=== PATIENT | male | born 1930 | race Caucasian/White ===

== ENCOUNTER 2016-09-28 13:12 | Emergency (ER) | payer MEDICARE, OTHER ==
[~2016-09-28 13:12] MED LIST: AMOX-366 PO; DILT120C86 PO; ESOM40CA41 PO; FERR325C PO; LEVO75TA4 PO; RNT300T PO; SIMV10TA4 PO; TAMS0.4C98 PO; TOLT4CAP13 PO; WARF5TAB PO; WARF7.5T4 PO
[2016-09-28 13:20] VITALS: BP 146/83; PULSE 63; RESP 16; O2SAT 96
[2016-09-28 13:23] LABS: BASOPHILS % (AUTO) 0.4 % (0-3); EOSINOPHILS % (AUTO) 4.9 % (0-5); MONOCYTES % (AUTO) 9.2 % (4-12); Mean Corpuscular Volume 98.7 fL (81-100); NEUTROPHILS % (AUTO) 62.4 % (40-74); Platelet Count 323 bil/L (150-400)
[2016-09-28] MEDS ORDERED: RANI150C4 PO (13:38)
[2016-09-28] MEDS ORDERED: LEVO75CA2 PO (13:38)
[2016-09-28] MEDS ORDERED: ASPI-973 PO (13:38)
[2016-09-28] MEDS ORDERED: SIMV20TA4 PO (13:38)
--- NOTE | 2016-09-28 13:42 | DRSVH ---
PROCEDURE: X-RAY CHEST ONE VIEW, PORTABLE ([id number]) INDICATIONS: chest pressure/palpitations TECHNIQUE: One view of the chest was acquired. COMPARISON: [facility], CR, XR CHEST 1VW (PORTABLE), 01/21/2016, 20:31. FINDINGS: Surgical changes and devices: None. Lungs and pleura: No pleural effusions or pneumothorax. Lungs are clear. No clonus in The right diaphragm, which is mildly elevated, not significantly changed. Mediastinum: Mediastinal contours appear normal. Heart size is normal. There is aortic atheroscler osis. Bones and chest wall: No suspicious bony lesions. The bone mineralization appears decreased. Overl karolina soft tissues appear unremarkable. IMPRESSION: Stable chest. No acute cardiopulmonary process is evident. Dictated by: Torres Enrique M.D. on 09/28/2016 at 12:39 Approved by: Torres Enrique M.D. on 09/28/2016 at 12:40
[2016-09-28 13:43] LABS: TROPONIN T < 0.010 ug/L (0.0-0.011)
[2016-09-28 13:52] LABS: Magnesium 2.2 mg/dL (1.6-2.6)
--- NOTE | 2016-09-28 14:24 | ED.REPORT ---
HPI-Chest Pain 40 and Over Date of Service Sep 28, 2016 ED Provider: Brian Mcclellan MD Patient present in the ER today for chest pain on exertion. At this point he has no chest pain symptoms all have resolved since arrival. Earlier today he was at the gym working out on one of the machines when he noted chest pain dizziness and nausea without vomiting. She has had a history of chest pain over the last couple months progressive. All episodes seem to be related to exertion. Chest pain is alleviated with rest sometimes taking many minutes to resolve but pain was eventually does resolve. Patient is currently taking medication for high cholesterol as well as aspirin. Family reports that he has recent history of A. fib. Nursing Notes Stated Complaint: CHEST PAIN Chief Complaint: Chest Pain Allergies: Coded Allergies: No Known Allergies (Unverified Allergy, Unknown, 03/29/14) Uncoded Allergies: seasonal allergies (Allergy, Mild, 12/23/10) Scheduled Aspirin (Aspirin) 81 Mg Tablet 81 MG PO DAILY Diltiazem ER (Diltiazem ER) 120 Mg Capsule.er 120 MG PO DAILY Esomeprazole Magnesium (Nexium) 40 Mg Capsule.dr 40 MG PO BID Ferrous Sulfate (Iron) 325 Mg Capsule.er 164 MG PO TID Levothyroxine (Tirosint) 75 Mcg Capsule 75 MCG PO DAILY Nitroglycerin SL (Nitroglycerin SL) 0.4 Mg Tab.subl 0.4 MG SL Q5MIN Ranitidine (Ranitidine) 150 Mg Capsule 150 MG PO DAILY Simvastatin (Simvastatin) 20 Mg Tablet 20 MG PO HS Tamsulosin (Flomax) 0.4 Mg Capsule 0.8 MG PO BID Tolterodine Tartrate ER (Tolterodine Tartrate ER) 4 Mg Capsule 4 MG PO DAILY General Time Seen by MD: 13:23 Chief Complaint Chest pain Sudden in Onset?: Yes Onset Occurred: 1 - 4 hours ago Context of Onset: Light exertion Symptom Duration: Intermittent Severity: Current: No pain currently Risk Factors )( CAD Risk Stratification Hyperlipidemia Hypertension Past Medical History Past Medical History 1. Hypertension. 2. Anemia, chronic, stable, of uncertain etiology. 3. Mild chronic renal insufficiency. 4. Prostatic hypertrophy with obstructive uropathy. 5. Hyperlipidemia. 6. skin ca, post rad tx. 7. lymphedema in area of rad tx. 8. Actinic keratoses. 9. Afib Reports: Hyperlipidemia, Hypertension Past Surgical History None reported. Family History Reviewed, not relevant Smoking History Never Smoker Social History Alcohol Use: Denies alcohol use Drug Use: Denies drug use Other Social History: Good social support, Local resident Review of Systems Basic Review of Systems Eyes: Vision NL ENT: Hearing NL Complete sys rev & neg: except as marked. Physical Exam Initial Vital Signs Vital Signs (First) Date Time Temp Pulse Resp B/P Pulse Ox O2 Delivery O2 Flow Rate FiO2 09/28/16 13:20 36.8 63 16 146/83 96 Room Air Head / Eyes: Atraumatic, Normocephalic ENT: Mucous membranes moist, Conjunctiva normal Neck: Supple Extremities: Vascular intact Skin: Warm, Dry, No cyanosis Neurologic: Alert, Oriented Psychiatric: Mood/affect normal, Behavior normal Cardiovascular: Heart rate NL, Regular rhythm, Heart sounds NL, No gallop, No murmurs Lower Ext Edema: Positive: Left 1+, Right 1+ Interpretation & Diagnostics Lab Results Interpretation Result Diagram: 09/28/16 1318 09/28/16 1318 Test 09/28/16 13:18 09/28/16 15:42 09/28/16 15:58 White Blood Count 4.5th/mm3 (3.8-10.1) Red Blood Count 3.00mil/mm3 (4.40-5.80) Hemoglobin 9.6g/dL (13.8-17.2) Hematocrit 29.6% (41.0-50.0) Mean Corpuscular Volume 98.7fL (81-100) Mean Corpuscular Hemoglobin 32.0pg (27.0-35.0) Mean Corpuscular Hemoglobin Concent 32.4% (32.0-37.0) Red Cell Distribution Width 13.0% (12.3-15.4) Platelet Count 323bil/L (150-400) Neutrophils (%) (Auto) 62.4% (40-74) Lymphocytes (%) (Auto) 23.1% (14-46) Monocytes (%) (Auto) 9.2% (4-12) Eosinophils (%) (Auto) 4.9% (0-5) Basophils (%) (Auto) 0.4% (0-3) Sodium Level 139mEq/L (134-144) Potassium Level 4.0mEq/L (3.5-5.2) Chloride Level 103mEq/L (97-108) Carbon Dioxide Level 24mmol/L (18-29) Blood Urea Nitrogen 17mg/dL (8-27) Creatinine 1.06mg/dL (0.76-1.27) Estimat Glomerular Filtration Rate 71mL/min (>59) Glucose Level 95mg/dL (60-99) Calcium Level 9.3mg/dL (8.5-10.1) Magnesium Level 2.2mg/dL (1.6-2.6) Total Bilirubin 0.2mg/dL (0.0-1.2) Aspartate Amino Transf (AST/SGOT) 26U/L (0-50) Alanine Aminotransferase (ALT/SGPT) 12U/L (0-44) Alkaline Phosphatase 49U/L (25-160) Total Protein 6.9g/dL (6.4-8.4) Albumin 3.5g/dL (3.4-5.0) Hold Urine Received (Received) Troponin T < 0.010ug/L (0.0-0.011) Re-Eval/Medical Decision Med Decision/Clinical Course At this time cardiac workup is negative however patient is symptomatic with minimal exertion which would suggest unstable angina. daughter is currently in the room we discussed the possibility of admitting to the hospital for observation and further workup or whether the patient would prefer to return home at this point. Family is decided that they would prefer that the patient return home and resume more comfort measures as opposed to doing extensive workup at this time. This is reasonable considering his age and advanced dementia. It was me know into the family that they were certainly welcome back to the ER at any point or if they change their mind for any reason. The family also elected to have the primary care doctor manage heart medications if she were to select any apart from nitroglycerin which we will be sending the patient home on. Counseled Regarding: Diagnosis, Lab results, Need for follow-up, When/why to return to ED Discharge & Departure Primary Impression: Unstable angina Disposition: Home Discharge Condition All VS Reviewed: Yes Condition: Stable Additional Instructions: Follow-up with primary care physician within 1-2 weeks in order to optimize at home medications for comfort Take nitroglycerin tablets as needed for chest pain If patient becomes acutely worse and nitroglycerin is not sufficient to cover his symptoms please return to the emergency department Referrals: OTHER,PHYSICIAN (PCP) (Family) Nasim Ferrer DO Sep 28, 2016 14:24 Brian Mcclellan MD Sep 28, 2016 19:36
[2016-09-28 15:35] VITALS: BP 162/83; PULSE 63; RESP 16; O2SAT 98
[2016-09-28 17:00] VITALS: BP 143/83; PULSE 68; RESP 16; O2SAT 98
[2016-09-28] MEDS ORDERED: NITR0.4T6 SL (17:34)
[2016-09-28 18:10] VITALS: BP 112/70; PULSE 74; RESP 15; O2SAT 95
== END 2016-09-28 17:53 | disposition home or self-care (01) ==
LOC: SED 13:12
DX: I20.0 Unstable angina (principal); I12.9 Hypertensive chronic kidney disease with stage 1 through stage 4 chronic kidney disease, or unspecified chronic kidney disease; N18.9 Chronic kidney disease, unspecified; E78.5 Hyperlipidemia, unspecified; Z87.438 Personal history of other diseases of male genital organs; Z85.828 Personal history of other malignant neoplasm of skin; Z86.2 Personal history of diseases of the blood and blood-forming organs and certain disorders involving the immune mechanism; Z79.82 Long term (current) use of aspirin
CPT/HCPCS: 36415; 71010; 80053; 83735; 84484; 85025; 93005; 99285; G0463